=== PATIENT | male | born 1975 | race Caucasian/White ===

== ENCOUNTER 2020-04-06 10:37 | Emergency (ER) | payer OTHER, SELFPAY ==
[2020-04-06 10:41] VITALS: BP 144/93; PULSE 91; RESP 17; TEMP 37.1; O2SAT 98; BMI 32.8
[2020-04-06 11:09] VITALS: BP 140/82
--- NOTE | 2020-04-06 11:13 | ED.VIS.GEN ---
History of Present Illness Chief Complaint: Hypertension Informant: Patient Narrative: 45-year-old male with a history of hypertension presents for the evaluation of elevated blood pressure. He tells me that he is on single drug therapy with [facility]. He states that he took his blood pressure this morning and it was around 145/95. Took a shower took it again. [place]. He stopped by [facility] and he tells me that they did a twelve-lead EKG and stated that his blood pressure was 155/115. He states he was not having any symptoms related to elevated pressure. He last had his creatinine checked in January 2020 and it was 1.08. He had a heart cath last year and tells me that he had a 30% stenosis in one artery. He has had chronic chest and back tightness for years and was felt that is not cardiac related. Past Medical History - Allergies and Home Meds Allergies/Adverse Reactions: Allergies silicone Allergy (Verified 04/06/20 10:39) Vanessa Primary Care Physician: [facility] Doctor,Out of [NON-STAFF] - Past Medical History: - - Hypertension hypothyroid hypercholesterolemia Surgical History: - - Heart catheterization Smoking Status: Never smoker Drugs: None Review of Systems General: Denies: Chills, Fever, Sweats Eyes: Denies: Visual changes - bilaterally, Diplopia ENT: Denies: Rhinorrhea, Sore throat Cardiovascular: Reports: Chest pain - Chronic no change from baseline. Denies: Palpitations Respiratory: Denies: Dyspnea, Cough, Dyspnea on exertion Gastrointestinal: Denies: Abdominal pain, Nausea, Vomiting, Diarrhea, Melena, Hematochezia Genitourinary: Denies: Dysuria, Hematuria, Frequency Musculoskeletal: Reports: Back pain - Chronic no change from baseline. Denies: Extremity Pain Skin: Denies: Rash, Wounds Neurological: Denies: Headache, Weakness, Numbness Physical Exam Vital Signs/Narrative: Vital Signs Temp Pulse Resp BP Pulse Ox 04/06/20 11:09 140/82 H 04/06/20 10:41 98.7 F 91 17 144/93 H 98 Inital Vital Signs reviewed: Yes General: Well nourished, Well developed, No Acute Distress Head: Normocephalic, Atraumatic Eyes: Perrl, EOMI ENT: Moist mucous membranes, No rhinorrhea Neck: Supple, Nontender Cardiovascular: Regular rate, Regular rhythm, No murmurs Respiratory: No distress, CTA bilaterally, Chest nontender Abdomen: Soft, Nontender, Nondistended, Normal bowel sounds Back: Nontender, Normal Inspection Extremities: Nontender, No edema Skin: Normal color, No rash Neurological: Alert, Oriented x3, Cranial nerves II-XII grossly intact, Normal Strength, Normal Sensation Psychological: Normal affect, Normal Mood Diagnostic/Tx/Re-eval Laboratory Last Values Sodium 138 mmol/L (136-145) 04/06/20 10:30 Potassium 4.0 mmol/L (3.5-5.1) 04/06/20 10:30 Chloride 106 mmol/L (98-107) 04/06/20 10:30 Carbon Dioxide 29.0 mmol/L (21.0-32.0) 04/06/20 10:30 Anion Gap 3 (5-15) L 04/06/20 10:30 BUN 10 mg/dL (7-18) 04/06/20 10:30 Creatinine 0.98 mg/dL (0.70-1.30) 04/06/20 10:30 Estim Creat Clear Calc 97.25 ml/min 04/06/20 10:30 Est GFR (MDRD) Af Amer 106 mL/min (>60) 04/06/20 10:30 Est GFR (MDRD) Non-Af 88 mL/min (>60) 04/06/20 10:30 BUN/Creatinine Ratio 10.3 RATIO (10-20) 04/06/20 10:30 Glucose 106 mg/dL (74-106) 04/06/20 10:30 Calcium 9.1 mg/dL (8.5-10.1) 04/06/20 10:30 Troponin I < 0.015 ng/mL (<0.045) 04/06/20 10:30 - Medical Decision Making Manual blood pressure is 140/82. BMP shows a normal creatinine and electrolytes. At this point patient's blood pressure is not in the red zone and he is asymptomatic. We will have him check his blood pressure daily and record it and take it to his primary care physician. Return if worsening or concerns. ED Disposition - Plan for ED Patient: Disposition: Home or Assisted Living Diagnosis: Hypertension Instructions: ED High Blood Pressure ... Referrals: [facility] Doctor,Out of [NON-STAFF] - Additional Instructions: Cord your blood pressure daily for the next 2 weeks and take it to your primary care physician for their review.
[2020-04-06 11:31] LABS: Anion Gap 3 (5-15); BUN 10 mg/dL (7-18); BUN/Creat Ratio 10.3 RATIO (10-20); Calcium,Total 9.1 mg/dL (8.5-10.1); Chloride 106 mmol/L (98-107); Creatinine, Serum 0.98 mg/dL (0.70-1.30); EST Glomerular Filtration Rate 88 mL/min (>60); Est Glom Filt Rate - Afr Amer 106 mL/min (>60); Estimated Creatinine Clearance 97.25 ml/min; Glucose 106 mg/dL (74-106); Sodium Level 138 mmol/L (136-145)
[2020-04-06 11:49] VITALS: BP 138/75; PULSE 82; RESP 16; O2SAT 99
== END 2020-04-06 11:49 | disposition home or self-care (01) ==
PROVIDERS: Emergency Provider Emergency Medicine
DX: I10 Essential (primary) hypertension (principal); E78.00 Pure hypercholesterolemia, unspecified; Z79.899 Other long term (current) drug therapy
CPT/HCPCS: 80048; 84484; 99282